=== PATIENT | male | born 1995 | race Caucasian/White ===

== ENCOUNTER 2021-09-24 14:23 | Emergency (ER) | payer OTHER, SELFPAY ==
[2021-09-24 14:38] VITALS: BP 134/89; PULSE 105; RESP 15; TEMP 37.3; O2SAT 96; BMI 32.5
[2021-09-24 15:23] LABS: COVID19 -Nasal RAPID POSITIVE (Negative)
[2021-09-24 16:37] VITALS: PULSE 101; RESP 20; TEMP 37.8; O2SAT 100
[2021-09-24] MEDS: KETOROLAC 30 MG/ML VIAL IM (16:40)
[2021-09-24] MEDS: guaiFENesin ER 600 MG TAB PO (16:52)
--- NOTE | 2021-09-24 17:41 | ED_ITS ---
HPI - Fever <PARKER Bustillos - Last Filed: 09/24/21 17:47> General Chief Complaint: Fever Stated Complaint: cough, sore throat, dizzy Time Seen by Provider: 09/24/21 16:29 Source: patient Mode of arrival: Ambulatory History of Present Illness HPI Narrative: 26-year-old male presents to the emergency department for cough, fever T-max of 102? F this morning, sore throat, muscle aches, congestion, and feeling ill which started today. Patient is vaccinated x2 for COVID. Patient denies any nausea vomiting, chest pain, difficulty breathing, shortness of breath, diarrhea, or other symptoms. Patient has had a fever today, took Tylenol this morning, has tried to drink water and is tolerating it without difficulty but reports that his throat is sore. Patient denies any dizziness. Related Data Previous Rx's Medication Instructions Recorded guaifenesin 600 mg tablet, 600 mg PO BID PRN #14 tab 09/24/21 extended release 12 hr methocarbamol 500 mg tablet 500 mg PO Q8H PRN #14 tab 09/24/21 Allergies Allergy/AdvReac Type Severity Reaction Status Date / Time No Known Drug Allergies Allergy Verified 09/24/21 14:38 Review of Systems <PARKER Bustillos - Last Filed: 09/24/21 17:47> Review of Systems Narrative: General: Endorses having a fever andchills Head/Neck: denies headache, neck pain Eyes: denies visual changes, eye pain Cardio: denies chest pain, palpitations Respiratory: denies shortness of breath, cough GI: denies abdominal pain, nausea, vomiting, or diarrhea : denies dysuria, hematuria MSK: denies joint pain, muscle weakness, endorses muscle aches Skin: denies rash, itching Neuro: denies numbness, tingling Patient History <PARKER Bustillos - Last Filed: 09/24/21 17:47> Social History Smoking Status: Unknown if ever smoked Smoking Status: Unknown if ever smoked alcohol intake frequency: holidays/special occasions only Substance Use Type: does not use Exam <PARKER Bustillos - Last Filed: 09/24/21 17:47> Narrative Exam Narrative: Independently reviewed vitals signs and nursing notes. General: Awake, alert, nontoxic, no cardiorespiratory distress, is warm to touch, assume his temperature has gone up since his temperature was taking, he was given Toradol for this has not taken any Motrin today Head/Neck: Atraumatic, neck full range of motion Eyes: EOMI, conjunctiva mildly injected Nose: nares patent, + congestion without sinus tenderness Mouth/Throat: moist mucus membranes, posterior pharynx normal erythematous without exudate, no oral lesions Cardio: Regular rate and rhythm, no peripheral edema Respiratory: respirations unlabored without wheezing, stridor, or rales. No retractions. Frequent cough, nonproductive. GI: Abdomen soft, nontender MSK: Moves all extremities, neurovascularly intact Skin: Normal capillary refill, no rash Neuro: Normal speech and cognition, normal gait Initial Vital Signs Initial Vital Signs: Vital Signs Temperature 99.2 F 09/24/21 14:38 Pulse Rate 105 H 09/24/21 14:38 Respiratory Rate 15 09/24/21 14:38 Blood Pressure 134/89 09/24/21 14:38 Pulse Oximetry 96 09/24/21 14:38 <Albin Guillermo DO - Last Filed: 10/01/21 05:00> Initial Vital Signs Initial Vital Signs: Vital Signs Temperature 99.2 F 09/24/21 14:38 Pulse Rate 105 H 09/24/21 14:38 Respiratory Rate 15 09/24/21 14:38 Blood Pressure 134/89 09/24/21 14:38 Pulse Oximetry 96 09/24/21 14:38 Course <PARKER Bustillos - Last Filed: 09/24/21 17:47> Orders Ordered: Discontinued Medications Guaifenesin (Guaifenesin Er 600 Mg Tab) 600 mg PO NOW ONE Stop: 09/24/21 16:37 Last Admin: 09/24/21 16:52 Dose: 600 mg Documented by: LAUREN Ketorolac Tromethamine (Ketorolac 30 Mg/Ml Vial) 30 mg IM NOW ONE Stop: 09/24/21 16:37 Last Admin: 09/24/21 16:40 Dose: 30 mg Documented by: LAUREN Vital Signs Vital signs: Vital Signs - 8 hr 09/24/21 14:38 Temperature 99.2 F Pulse Rate 105 H Respiratory Rate 15 Blood Pressure 134/89 Pulse Oximetry 96 <Albin Guillermo DO - Last Filed: 10/01/21 05:00> Orders Ordered: Discontinued Medications Guaifenesin (Guaifenesin Er 600 Mg Tab) 600 mg PO NOW ONE Stop: 09/24/21 16:37 Last Admin: 09/24/21 16:52 Dose: 600 mg Documented by: LAUREN Ketorolac Tromethamine (Ketorolac 30 Mg/Ml Vial) 30 mg IM NOW ONE Stop: 09/24/21 16:37 Last Admin: 09/24/21 16:40 Dose: 30 mg Documented by: LAUREN Vital Signs Vital signs: Vital Signs - 8 hr 09/24/21 14:38 Temperature 99.2 F Pulse Rate 105 H Respiratory Rate 15 Blood Pressure 134/89 Pulse Oximetry 96 MDM - Fever <PARKER Bustillos - Last Filed: 09/24/21 17:47> Lab Data Labs: Lab Results 09/24/21 Range/Units 14:41 SARS-CoV-2 (PCR) Positive H (Negative) MDM Narrative Medical decision making narrative: 26-year-old male presents to the emergency department COVID vaccinated 2 of 2 complaining of fever, cough, muscle aches and headache which started this morning. His COVID test was positive, he was informed of these results, he was given a copy of his results for work, instructed to quarantine for the next 5 days or until his fever is gone whichever longer per CDC guidelines. Patient was given Toradol, and Robaxin with improvement in his symptoms, his tachycardia reduced to a heart rate of 90 prior to discharge. He understands to stay hyd rated, checked his temperature every 6 hours intake Tylenol or Motrin as needed, he also understands to not take any ibuprofen today. Patient is appropriate and amenable to discharge home. Vital signs are stable on repeat examination is unremarkable. Patient has been informed of results. Patient has been given strict return to ER precautions for any new or worsening symptoms. Patient understands to follow up closely with outpatient providers as instructed. Patient understands plan and agrees to discharge home. All questions and concerns answered at this time. <Albin Guillermo DO - Last Filed: 10/01/21 05:00> Lab Data Labs: Lab Results 09/24/21 Range/Units 14:41 SARS-CoV-2 (PCR) Positive H (Negative) Discharge Plan Departure Patient Disposition: Home Clinical Impression: COVID-19 Instructions: DI for Fever (Symptom) -- Adult, DI for COVID-19 (Suspected or Confirmed ) Activity Restrictions/Additional Instructions: *You have been diagnosed with COVID-19. Today is day 1 of your quarantine, please quarantine for 5 days or for as long as you have a fever whichever is longer per CDC guidelines. Please also remember to drink plenty to stay hydr ated. You become extra dehydrated when you have a fever. I prescribed you some Robaxin as needed for muscle aches, and some cough syrup if it is helpful. Please return for any new or worsening shortness of breath, nausea or vomiting if you are unable to keep anything down. *What to do: *Please continue to take your regular medications as directed. [ x] New medication prescriptions sent to your pharmacy: [[facility] ] [ ] New medication written as a paper prescription [ ] No new medications given *Please follow up with your primary care provider in 2-3 days, call for an appointment. Let them know you were seen in the Emergency Department and that we ask that you be seen in follow up. We will electronically transmit a record of today's note if your PCP is in our system *If you do not have a primary care provider please contact the [facility] Resource line at [phone]. They will ask some questions about your medical history and help get you set up with a doctor in the community. *Return to Emergency Department if you should have any new, worsening or concerning symptoms, such as [fever greater than 101F, chills, worsening pain, persistent vomiting or other bothersome symptoms] Prescriptions: New guaifenesin 600 mg tablet extended release 12hr 600 mg PO BID PRN (Reason: cough) Qty: 14 0RF methocarbamol 500 mg tablet 500 mg PO Q8H PRN (Reason: muscle spasms) Qty: 14 0RF Referrals: Gonzales Nelson [Primary Care Provider] - <Albin Guillermo DO - Last Filed: 10/01/21 05:00> [facility] Attending Thuanature Attestation: I was immediately available in the department for consultation. This documentation has been reviewed and I agree with assessment and plan. Supervised by Albin Guillermo, DO
== END 2021-09-24 16:37 | disposition home or self-care (01) ==
PROVIDERS: Emergency Medicine; Emergency Provider Nurse Practitioner Critical Care Medicine; PCP Student in an Organized Health Care Education/Training Program
DX: U07.1 COVID-19 (principal)
CPT/HCPCS: 87635; 96372; 99283; C9803; J1885